=== PATIENT | female | born 1995 | race Caucasian/White ===

== ENCOUNTER 2017-09-01 19:51 | Emergency (ER) | payer BC ==
[2017-09-01] MEDS ORDERED: MOTRIN 400 MG PO ONE (21:01)
--- NOTE | 2017-09-01 21:03 | ERPHSYRPT ---
- History of Present Illness Time Seen by Provider: 09/01/17 20:53 Source: patient Exam Limitations: no limitations Patient Subjective Stated Complaint: pt states while climbing down a ladder, she missed a step and and twisted her ankle and heard 2 pops. Triage Nursing Assessment: pt alert and oriented, asnwers questions approp. pt transfer from wheelchair to stretcher per self, does not bear weigh on lt leg. respirations nonlabored with lungs cta. tenderness noted to lt ankle and foot. Physician History: Pt states, she slipped off a ladder, twisted her left ankle, developed pain, denies other injury or complaints Method of Injury: fell, twisted Occurred: just prior to arrival Quality: constant Severity of Pain-Max: moderate Severity of Pain-Current: moderate Lower Extremities Pain: foot: left, ankle: left Modifying Factors: Improves With: movement Associated Symptoms: none Allergies/Adverse Reactions: No Known Drug Allergies Allergy (Verified 09/01/17 20:41) Home Medications: No Reportable Medications [No Reported Medications] 09/01/17 [History] Hx Tetanus, Diphtheria Vaccination/Date Given: Yes Hx Influenza Vaccination/Date Given: No Hx Pneumococcal Vaccination/Date Given: No Immunizations Up to Date: Yes - Review of Systems Constitutional: No Symptoms Musculoskeletal: Other (left ankle and foot painful) All Other Systems: Reviewed and Negative - Past Medical History Cardiac History: Hypertension - Past Surgical History Past Surgical History: Yes Other Surgical History: surgery on lt arm- broken, dislocated elbow - Social History Smoking Status: Current every day smoker How long have you smoked: 2yrs Exposure to second hand smoke: No Drug Use: none Patient Lives Alone: No - Female History Hx Last Menstrual Period: 37 days-irreg Hx Now: No - Nursing Vital Signs Nursing Vital Signs: Initial Vital Signs Temperature 97.5 F 09/01/17 20:30 Pulse Rate 120 H 09/01/17 20:30 Respiratory Rate 18 09/01/17 20:30 Blood Pressure 144/96 09/01/17 20:30 O2 Sat by Pulse Oximetry 100 09/01/17 20:30 Pain Scale Pain Intensity 10 - Physical Exam General Appearance: no apparent distress Eyes, Ears, Nose, Throat Exam: normal ENT inspection Neck Exam: normal inspection, non-tender Cardiovascular/Respiratory Exam: chest non-tender, normal breath sounds, regular rate/rhythm, heart sounds normal Gastrointestinal/Abdominal Exam: non-tender, soft Back Exam: normal inspection, No CVA tenderness Hips Exam: bilateral: non-tender Ankle Exam: left ankle: soft tissue tenderness (lateral ankle, no severe laxity or hematoma, good distal pulses) Foot Exam: left foot: soft tissue tenderness (dorsal foot, no swelling or bruise ) Neuro/Tendon Exam: normal motor functions Mental Status Exam: alert, oriented x 3 Skin Exam: normal color, warm, dry SpO2 Interpretation: normal SpO2: 100 Oxygen Delivery: Room Air - Course Nursing assessment & vital signs reviewed: Yes - Radiology Exams Left Ankle X-ray Interpretation: Interpreted by me, Negative Left Foot X-ray Interpretation: Interpreted by me, Negative Ordered Tests: Active Orders 24 hr Category Date Time Status ANKLE (3 VIEWS) Stat Exams 09/01/17 20:57 Taken FOOT (MINIMUM 3 VIEWS) Stat Exams 09/01/17 20:57 Ordered Medication Summary Discontinued Medications Generic Name Dose Route Start Last Admin Trade Name Freq PRN Reason Stop Dose Admin Ibuprofen 400 mg 09/01/17 21:01 09/01/17 21:05 Motrin 400 Mg PO 09/01/17 21:02 400 mg STAT ONE Administration Ibuprofen Confirm 09/01/17 21:05 Motrin 400 Mg Administered 09/01/17 21:06 Dose 400 mg .ROUTE .[employer]MED ONE - Progress Progress: improved Progress Note: 09/01/17 22:44 I informed patient about her X ray results, instructed to rest x 2-3 days with elevated leg, apply ice to swelling, return if severe pain, or discoloration of the toes, otherwise to follow up with his doctor or [facility] next week. Counseled pt/family regarding: diagnosis, need for follow-up, rad results - Departure Time of Disposition: 22:45 Departure Disposition: Home Clinical Impression: Ankle sprain Qualifiers: Encounter type: initial encounter Involved ligament of ankle: other ligament Laterality: left Qualified Code(s): S93.492A - Sprain of other ligament of left ankle, initial encounter Condition: Stable Critical Care Time: No Referrals: DOCTOR,NO FAMILY [Primary Care Provider] - Instructions: Ankle Sprain (DC) Additional Instructions: Rest x2-3 days with elevated leg, apply ice or cold compresses to swelling, return if severe pain, swelling, discoloration of the toes! Follow up with tour doctor or [facility] next week!
[2017-09-01] MEDS ORDERED: MOTRIN 400 MG ONE (21:05)
[2017-09-01 21:11] VITALS: BP 118/90; PULSE 109
[2017-09-01 22:46] VITALS: O2SAT 100
--- NOTE | 2017-09-01 23:05 | XRAY ---
Indication: Pain following fall. Comparison: None 3 nonweightbearing views of the left foot demonstrates tiny heel spurs. No other bony, articular, or soft tissue abnormalities.
--- NOTE | 2017-09-01 23:05 | XRAY ---
Indication: Pain following fall. Comparison: None 3 views of the left ankle demonstrates tiny heel spurs. No other bony, articular, or soft tissue abnormalities.
== END 2017-09-01 23:04 | disposition home or self-care (01) ==
LOC: ED 19:51
DX: S93.402A Sprain of unspecified ligament of left ankle, initial encounter (principal); W11.XXXA Fall on and from ladder, initial encounter
CPT/HCPCS: 73610; 73630; 99283; A9270-GY

== ENCOUNTER 2021-02-14 10:20 | Emergency (ER) | payer BC ==
--- NOTE | 2021-02-14 10:28 | ERPHSYRPT ---
- History of Present Illness Time Seen by Provider: 02/14/21 10:27 Source: patient Exam Limitations: no limitations Physician History: This is a morbidly obese 25-year-old white female who presents with left ankle pain. Patient stepped off of her mother's porch 2 days ago and twisted her ankle. There is swelling and bruising present she is concerned that there may be a fracture present. She is able to bear weight. She ambulated into the emergency department with an old walking boot in place. Occurred: days ago (2) Quality: aching Severity of Pain-Max: mild (To moderate) Severity of Pain-Current: mild (To moderate) Lower Extremities Pain: ankle: left Modifying Factors: Improves With: movement Associated Symptoms: other (Is able to bear weight but there is aching present.) Allergies/Adverse Reactions: No Known Drug Allergies Allergy (Verified 02/14/21 10:36) Home Medications: Ethinyl Estradiol/Drospirenone [Selina 28 Tablet] 1 each PO DAILY 02/14/21 [History] Fluoxetine HCl 20 mg [Prozac 20 MG] 20 mg PO DAILY 02/14/21 [History] Hx Tetanus, Diphtheria Vaccination/Date Given: Yes Hx Influenza Vaccination/Date Given: No Hx Pneumococcal Vaccination/Date Given: No Travel Risk - International Travel Have you traveled outside of the country in past 3 weeks: No - Coronavirus Screening Are you exhibiting any of the following symptoms?: No Close contact with a COVID-19 positive Pt in past 14-21 Days: No - Review of Systems Constitutional: No Symptoms Eyes: No Symptoms Ears, Nose, & Throat: No Symptoms Respiratory: No Symptoms Cardiac: No Symptoms Abdominal/Gastrointestinal: No Symptoms Genitourinary Symptoms: No Symptoms Musculoskeletal: Injury (Left ankle) Skin: Other (Ecchymosis medial aspect left ankle) Neurological: No Symptoms Psychological: No Symptoms Endocrine: No Symptoms Hematologic/Lymphatic: No Symptoms Immunological/Allergic: No Symptoms All Other Systems: Reviewed and Negative - Past Medical History Cardiac History: Hypertension - Past Surgical History Past Surgical History: Yes Other Surgical History: surgery on lt arm- broken, dislocated elbow - Social History Smoking Status: Current every day smoker How long have you smoked: 2yrs Exposure to second hand smoke: No Drug Use: none Patient Lives Alone: No - Nursing Vital Signs Nursing Vital Signs: Initial Vital Signs Temperature 97.3 F 02/14/21 10:25 Pulse Rate 107 H 02/14/21 10:25 Blood Pressure 153/117 02/14/21 10:25 O2 Sat by Pulse Oximetry 97 02/14/21 10:25 Pain Scale Pain Intensity 8 - Physical Exam General Appearance: no apparent distress, alert, obese Eyes, Ears, Nose, Throat Exam: normal ENT inspection, moist mucous membranes Neck Exam: normal inspection, non-tender, supple, full range of motion Cardiovascular/Respiratory Exam: chest non-tender, no respiratory distress Gastrointestinal/Abdominal Exam: non-tender Back Exam: normal inspection, normal range of motion, CVA tenderness Hips Exam: bilateral: non-tender, normal inspection, normal range of motion, no evidence of injury Legs Exam: bilateral leg: non-tender, normal inspection, normal range of motion, no evidence of injury Knees Exam: bilateral knee: non-tender, normal inspection, normal range of motion, no evidence of injury Ankle Exam: right ankle: non-tender, normal inspection, normal range of motion, no evidence of injury, left ankle: ecchymosis, soft tissue tenderness, swelling Foot Exam: bilateral foot: non-tender, normal inspection, normal range of motion, no evidence of injury Neuro/Tendon Exam: normal sensation, normal motor functions, normal tendon functions, responds to pain, no evidence tendon injury Mental Status Exam: alert, oriented x 3, cooperative Skin Exam: normal color, warm, dry SpO2 Interpretation: normal O2 Delivery: Room Air - Course Nursing assessment & vital signs reviewed: Yes Ordered Tests: Active Orders 24 hr Category Date Time Status ANKLE (3 VIEWS) Stat Exams 02/14/21 10:42 Taken - Progress Progress: unchanged, pain not gone completely, re-examined Progress Note: 02/14/21 11:10 X-ray left ankle shows no acute fracture or dislocation. There is evidence of soft tissue swelling the medial aspect of her left ankle Counseled pt/family regarding: diagnosis, need for follow-up, rad results - Departure Departure Disposition: Home Clinical Impression: Left ankle sprain Condition: Stable Critical Care Time: No Additional Instructions: Minimize your weightbearing. Use the walking boot until you have no pain. Use ice pack to area 3 times a day for the next 48 hours. Elevate the left ankle above the level of your heart. Add Tylenol and ibuprofen for pain control. Follow-up with [facility] orthopedic clinic for persistent symptoms.
[2021-02-14 10:36] VITALS: BP 153/117; PULSE 107; O2SAT 97
--- NOTE | 2021-02-14 18:55 | XRAY ---
Indication: Pain and bruising following fall 2 days ago. Comparison: September 01, 2017. 3 view left ankle demonstrates new nondisplaced fracture medial malleolus tip. Stable tiny heel spurs. No other bony, articular, or soft tissue abnormalities. Comment: Fracture not reported by interpreting ER clinician. Telephone report given to Dr. Betts at 1850 hrs. on February 14, 2021.
== END 2021-02-14 11:18 | disposition home or self-care (01) ==
LOC: ED 10:20
DX: S93.402A Sprain of unspecified ligament of left ankle, initial encounter (principal); S82.55XA Nondisplaced fracture of medial malleolus of left tibia, initial encounter for closed fracture; X50.1XXA Overexertion from prolonged static or awkward postures, initial encounter; Y92.008 Other place in unspecified non-institutional (private) residence as the place of occurrence of the external cause; I10 Essential (primary) hypertension; E66.01 Morbid (severe) obesity due to excess calories; Z72.0 Tobacco use
CPT/HCPCS: 73610; 99283

== ENCOUNTER 2022-01-16 20:01 | Emergency (ER) | payer SELFPAY ==
[2022-01-16] MEDS ORDERED: Sodium Chloride 0.9% 1000 ML 1,000 ML IV STA (21:16)
[2022-01-16] MEDS ORDERED: Zofran 4 MG/2 ML VIAL IV ONE (21:16)
[2022-01-16] MEDS ORDERED: Zofran 4 MG/2 ML VIAL ONE (21:26)
[2022-01-16] MEDS ORDERED: Sodium Chloride 0.9% 1000 ML 1,000 ML ONE (21:26)
--- NOTE | 2022-01-16 21:56 | ERPHSYRPT ---
- History of Present Illness Time Seen by Provider: 01/16/22 21:25 Historian: patient Exam Limitations: no limitations Patient Subjective Stated Complaint: pt was nauseated at work today and states she became sob. went home and did a test that was negative, walked out of the bathroom became dizzy and fell and hit face on floor. no vomiting or diarrhea, states she has no pain at this time. Triage Nursing Assessment: pt alert and oriented, no pain at this time. no nausea or vomiting Physician History: Patient is a 26-year-old white female who became ill today at work with some nausea. She went home and did a home test which was negative she was also short of breath she later went to the bathroom for to urinate and when she stood up room started spinning and she fell face first on the floor. She denies any fever chills sweats no vomiting and no diarrhea only nausea. Presently she has no symptoms. Timing/Duration: today Activities at Onset: none Quality: cramping Abdominal Pain Onset Location: generalized abdomen Severity of Pain-Max: mild Severity of Pain-Current: none Modifying Factors: Improves With: nothing Associated Symptoms: nausea Previous symptoms: same symptoms as today Allergies/Adverse Reactions: No Known Drug Allergies Allergy (Verified 02/14/21 10:36) Home Medications: Ethinyl Estradiol/Drospirenone [Selina 28 Tablet] 1 each PO DAILY 02/14/21 [History] Fluoxetine HCl 20 mg [Prozac 20 MG] 20 mg PO DAILY 02/14/21 [History] Hx Tetanus, Diphtheria Vaccination/Date Given: Yes Hx Influenza Vaccination/Date Given: No Hx Pneumococcal Vaccination/Date Given: No Travel Risk - International Travel Have you traveled outside of the country in past 3 weeks: No - Coronavirus Screening Are you exhibiting any of the following symptoms?: Yes Symptoms: Shortness of Breath Close contact with a COVID-19 positive Pt in past 14-21 Days: No - Vaccine Status Have you recieved a Covid-19 vaccination: No Department Director: [employer] - Vaccination Dates Date of 2cond Vaccination (if applicable): 01/01/2021 - Review of Systems Constitutional: No Fever, No Chills Eyes: No Symptoms Ears, Nose, & Throat: No Symptoms Respiratory: No Cough, No Dyspnea Cardiac: No Chest Pain, No Edema, No Syncope Abdominal/Gastrointestinal: Abdominal Pain, Nausea, No Vomiting, No Diarrhea Genitourinary Symptoms: No Dysuria Musculoskeletal: No Back Pain, No Neck Pain Skin: No Rash Neurological: Dizziness, No Focal Weakness, No Sensory Changes Psychological: No Symptoms Endocrine: No Symptoms All Other Systems: Reviewed and Negative - Past Medical History Pertinent Past Medical History: Yes Cardiac History: Hypertension - Past Surgical History Past Surgical History: Yes Other Surgical History: surgery on lt arm- broken, dislocated elbow - Social History Smoking Status: Current every day smoker How long have you smoked: 2yrs Exposure to second hand smoke: No Drug Use: none Patient Lives Alone: No - Female History Hx Last Menstrual Period: march Hx Now: No (unknown) - Nursing Vital Signs Nursing Vital Signs: Initial Vital Signs Temperature 98.6 F 01/16/22 21:11 Pulse Rate 87 01/16/22 21:11 Respiratory Rate 18 01/16/22 21:11 Blood Pressure 160/116 01/16/22 21:11 Pain Scale Pain Intensity 0 - Physical Exam General Appearance: no apparent distress, alert Eye Exam: PERRL/EOMI, eyes nml inspection Ears, Nose, Throat Exam: normal ENT inspection, pharynx normal, moist mucous membranes Neck Exam: normal inspection, non-tender, supple, full range of motion Respiratory Exam: normal breath sounds, lungs clear, No respiratory distress Cardiovascular Exam: regular rate/rhythm, normal heart sounds Gastrointestinal/Abdomen Exam: soft, No tenderness, No mass Back Exam: normal inspection, normal range of motion, No CVA tenderness, No vertebral tenderness Extremity Exam: normal inspection, normal range of motion, pelvis stable Neurologic Exam: alert, oriented x 3, cooperative, normal mood/affect, nml cerebellar function, sensation nml, No motor deficits Skin Exam: normal color, warm, dry - Course Nursing assessment & vital signs reviewed: Yes EKG Interpreted by Me: RATE (94), Sinus Rhythm, NORMAL AXIS, NORMAL INTERVALS, NORMAL QRS, NORMAL ST-T - Radiology Exams Chest X-ray Interpretation: Interpreted by me, Other (Cardiomegaly or rotation) - CT Exams Abdomen/Pelvis CT Interpretation: Tele-radiologist Report Ordered Tests: Active Orders 24 hr Category Date Time Status EKG-ER Only STAT Care 01/16/22 21:16 Active IV Insertion STAT Care 01/16/22 21:16 Active ABDOMEN AND PELVIS W/0 CONTRAS [CT] Stat Exams 01/16/22 21:17 Taken CHEST 1 VIEW (PORTABLE) Stat Exams 01/16/22 21:17 Taken AMYLASE Stat Lab 01/16/22 22:07 Completed CBC W DIFF Stat Lab 01/16/22 22:07 Completed CMP Stat Lab 01/16/22 22:07 Completed HCG,QUALITATIVE URINE Stat Lab 01/16/22 21:16 Completed LIPASE Stat Lab 01/16/22 22:07 Completed Lactic Acid Stat Lab 01/16/22 21:36 Completed PROTIME WITH INR Stat Lab 01/16/22 22:07 Completed TROPONIN Q4H Lab 01/16/22 22:07 Completed TROPONIN Q4H Lab 01/17/22 01:30 Ordered TROPONIN Q4H Lab 01/17/22 05:30 Ordered UA W/RFX CULTURE Stat Lab 01/16/22 23:30 Completed Urine Triage Profile Stat Lab 01/16/22 21:16 Ordered Medication Summary Discontinued Medications Generic Name Dose Route Start Last Admin Trade Name Freq PRN Reason Stop Dose Admin Sodium Chloride 1,000 mls @ 999 mls/hr 01/16/22 21:16 01/16/22 21:35 Sodium Chloride 0.9% 1000 Ml IV 01/16/22 22:16 999 mls/hr .Q1H1M STA Administration Sodium Chloride Confirm 01/16/22 21:26 Sodium Chloride 0.9% 1000 Ml Administered 01/16/22 21:27 Dose 1,000 mls @ ud .ROUTE .STK-MED ONE Ondansetron HCl 4 mg 01/16/22 21:16 01/16/22 21:36 Ondansetron Hcl 4 Mg/2 Ml Vial IV 01/16/22 21:17 4 mg STAT ONE Administration Ondansetron HCl Confirm 01/16/22 21:26 Ondansetron Hcl 4 Mg/2 Ml Vial Administered 01/16/22 21:27 Dose 4 mg .ROUTE .STK-MED ONE Lab/Rad Data: Laboratory Result Diagrams 01/16/22 22:07 01/16/22 22:07 Laboratory Results 01/16/22 01/16/22 01/16/22 Range/Units 23:30 22:07 22:07 WBC (4.0-10.5) x10^3/uL RBC (4.1-5.4) x10^6/uL Hgb (12.0-16.0) g/dL Hct (35-47) % MCV (78-100) fL MCH (26-32) pg MCHC (32-36) g/dL RDW (11.5-14.0) % Plt Count (150-450) x10^3/uL MPV (7.5-11.0) fL Gran % (36.0-66.0) % Immature Gran % (Auto) (0.00-0.4) % Nucleat RBC Rel Count (0.00-0.1) % Eos # (Auto) (0-0.5) x10^3/uL Immature Gran # (Auto) (0.00-0.03) x10^3u/L Absolute Lymphs (auto) (1.0-4.6) x10^3/uL Absolute Monos (auto) (0.0-1.3) x10^3/uL Absolute Nucleated RBC (0.00-0.01) x10^3u/L Lymphocytes % (24.0-44.0) % Monocytes % (0.0-12.0) % Eosinophils % (0.00-5.0) % Basophils % (0.0-0.4) % Absolute Granulocytes (1.4-6.9) x10^3/uL Basophils # (0-0.4) x10^3/uL PT (9.4-12.5) SECONDS INR (0.8-3.0) Sodium (137-145) mmol/L Potassium (3.5-5.1) mmol/L Chloride (98-107) mmol/L Carbon Dioxide (22-30) mmol/L Anion Gap (5-15) MEQ/L BUN (7-17) mg/dL Creatinine (0.52-1.04) mg/dL Estimated GFR ML/MIN Glucose (74-106) mg/dL Lactic Acid (0.4-2.0) Calcium (8.4-10.2) mg/dL Total Bilirubin (0.2-1.3) mg/dL AST (14-36) U/L ALT (0-35) U/L Alkaline Phosphatase (38-126) U/L Troponin I < 0.012 (0.000-0.034) ng/mL Serum Total Protein (6.3-8.2) g/dL Albumin (3.5-5.0) g/dL Amylase (30-110) U/L Lipase (23-300) U/L Urinalys Dipstick Clnc MAIN LAB Urine Color YELLOW (YELLOW) Urine Appearance CLEAR (CLEAR) Urine pH 5.5 (5-6) Ur Specific [place] >=1.030 A (1.005-1.025) POC Urine Protein Conf NEGATIVE (Negative) Urine Ketones NEGATIVE (NEGATIVE) Urine Nitrite NEGATIVE (NEGATIVE) Urine Bilirubin NEGATIVE (NEGATIVE) Urine Urobilinogen 0.2 (0-1) mg/dL Urine Leukocytes TRACE A (NEGATIVE) Urine WBC (Auto) 6-10 A (0-5) /HPF Urine RBC (Auto) 0-2 (0-2) /HPF U Epithel Cells (Auto) RARE (FEW) /HPF Urine Bacteria (Auto) NONE (NEGATIVE) /HPF Urine RBC NEGATIVE (0-5) Federico/ul Urine Mucus (Auto) SLIGHT A (NEGATIVE) /HPF Ur Culture Indicated? NO Urine Glucose NEGATIVE (NEGATIVE) mg/dL Urine HCG, Qual (Negative) Influenza Type A Ag NEGATIVE (NEGATIVE) Influenza Type B Ag NEGATIVE (NEGATIVE) RSV (PCR) NEGATIVE (Negative) SARS-CoV-2 (PCR) NEGATIVE (NEGATIVE) 01/16/22 01/16/22 01/16/22 Range/Units 22:07 22:07 22:07 WBC 12.6 H (4.0-10.5) x10^3/uL RBC 4.91 (4.1-5.4) x10^6/uL Hgb 13.1 (12.0-16.0) g/dL Hct 42.4 (35-47) % MCV 86.4 (78-100) fL MCH 26.7 (26-32) pg MCHC 30.9 L (32-36) g/dL RDW 14.9 H (11.5-14.0) % Plt Count 289 (150-450) x10^3/uL MPV 11.7 H (7.5-11.0) fL Gran % 66.5 H (36.0-66.0) % Immature Gran % (Auto) 0.5 H (0.00-0.4) % Nucleat RBC Rel Count 0.0 (0.00-0.1) % Eos # (Auto) 0.42 (0-0.5) x10^3/uL Immature Gran # (Auto) 0.06 H (0.00-0.03) x10^3u/L Absolute Lymphs (auto) 3.10 (1.0-4.6) x10^3/uL Absolute Monos (auto) 0.59 (0.0-1.3) x10^3/uL Absolute Nucleated RBC 0.00 (0.00-0.01) x10^3u/L Lymphocytes % 24.7 (24.0-44.0) % Monocytes % 4.7 (0.0-12.0) % Eosinophils % 3.3 (0.00-5.0) % Basophils % 0.3 (0.0-0.4) % Absolute Granulocytes 8.34 H (1.4-6.9) x10^3/uL Basophils # 0.04 (0-0.4) x10^3/uL PT 10.3 (9.4-12.5) SECONDS INR 0.97 (0.8-3.0) Sodium 136 L (137-145) mmol/L Potassium 4.9 (3.5-5.1) mmol/L Chloride 103 (98-107) mmol/L Carbon Dioxide 27 (22-30) mmol/L Anion Gap 10.8 (5-15) MEQ/L BUN 8 (7-17) mg/dL Creatinine 0.50 L (0.52-1.04) mg/dL Estimated GFR > 60.0 ML/MIN Glucose 83 (74-106) mg/dL Lactic Acid (0.4-2.0) Calcium 9.2 (8.4-10.2) mg/dL Total Bilirubin 0.70 (0.2-1.3) mg/dL AST 30 (14-36) U/L ALT 26 (0-35) U/L Alkaline Phosphatase 58 (38-126) U/L Troponin I (0.000-0.034) ng/mL Serum Total Protein 7.5 (6.3-8.2) g/dL Albumin 4.4 (3.5-5.0) g/dL Amylase 49 (30-110) U/L Lipase 31 (23-300) U/L Urinalys Dipstick Clnc Urine Color (YELLOW) Urine Appearance (CLEAR) Urine pH (5-6) Ur Specific [place] (1.005-1.025) POC Urine Protein Conf (Negative) Urine Ketones (NEGATIVE) Urine Nitrite (NEGATIVE) Urine Bilirubin (NEGATIVE) Urine Urobilinogen (0-1) mg/dL Urine Leukocytes (NEGATIVE) Urine WBC (Auto) (0-5) /HPF Urine RBC (Auto) (0-2) /HPF U Epithel Cells (Auto) (FEW) /HPF Urine Bacteria (Auto) (NEGATIVE) /HPF Urine RBC (0-5) Federico/ul Urine Mucus (Auto) (NEGATIVE) /HPF Ur Culture Indicated? Urine Glucose (NEGATIVE) mg/dL Urine HCG, Qual (Negative) Influenza Type A Ag (NEGATIVE) Influenza Type B Ag (NEGATIVE) RSV (PCR) (Negative) SARS-CoV-2 (PCR) (NEGATIVE) 01/16/22 01/16/22 Range/Units 21:36 21:16 WBC (4.0-10.5) x10^3/uL RBC (4.1-5.4) x10^6/uL Hgb (12.0-16.0) g/dL Hct (35-47) % MCV (78-100) fL MCH (26-32) pg MCHC (32-36) g/dL RDW (11.5-14.0) % Plt Count (150-450) x10^3/uL MPV (7.5-11.0) fL Gran % (36.0-66.0) % Immature Gran % (Auto) (0.00-0.4) % Nucleat RBC Rel Count (0.00-0.1) % Eos # (Auto) (0-0.5) x10^3/uL Immature Gran # (Auto) (0.00-0.03) x10^3u/L Absolute Lymphs (auto) (1.0-4.6) x10^3/uL Absolute Monos (auto) (0.0-1.3) x10^3/uL Absolute Nucleated RBC (0.00-0.01) x10^3u/L Lymphocytes % (24.0-44.0) % Monocytes % (0.0-12.0) % Eosinophils % (0.00-5.0) % Basophils % (0.0-0.4) % Absolute Granulocytes (1.4-6.9) x10^3/uL Basophils # (0-0.4) x10^3/uL PT (9.4-12.5) SECONDS INR (0.8-3.0) Sodium (137-145) mmol/L Potassium (3.5-5.1) mmol/L Chloride (98-107) mmol/L Carbon Dioxide (22-30) mmol/L Anion Gap (5-15) MEQ/L BUN (7-17) mg/dL Creatinine (0.52-1.04) mg/dL Estimated GFR ML/MIN Glucose (74-106) mg/dL Lactic Acid 1.3 (0.4-2.0) Calcium (8.4-10.2) mg/dL Total Bilirubin (0.2-1.3) mg/dL AST (14-36) U/L ALT (0-35) U/L Alkaline Phosphatase (38-126) U/L Troponin I (0.000-0.034) ng/mL Serum Total Protein (6.3-8.2) g/dL Albumin (3.5-5.0) g/dL Amylase (30-110) U/L Lipase (23-300) U/L Urinalys Dipstick Clnc Urine Color (YELLOW) Urine Appearance (CLEAR) Urine pH (5-6) Ur Specific [place] (1.005-1.025) POC Urine Protein Conf (Negative) Urine Ketones (NEGATIVE) Urine Nitrite (NEGATIVE) Urine Bilirubin (NEGATIVE) Urine Urobilinogen (0-1) mg/dL Urine Leukocytes (NEGATIVE) Urine WBC (Auto) (0-5) /HPF Urine RBC (Auto) (0-2) /HPF U Epithel Cells (Auto) (FEW) /HPF Urine Bacteria (Auto) (NEGATIVE) /HPF Urine RBC (0-5) Federico/ul Urine Mucus (Auto) (NEGATIVE) /HPF Ur Culture Indicated? Urine Glucose (NEGATIVE) mg/dL Urine HCG, Qual NEGATIVE (Negative) Influenza Type A Ag (NEGATIVE) Influenza Type B Ag (NEGATIVE) RSV (PCR) (Negative) SARS-CoV-2 (PCR) (NEGATIVE) - Progress Progress: improved - Departure Departure Disposition: Home Clinical Impression: Urinary tract infection Condition: Stable Critical Care Time: No Referrals: DOCTOR,NO FAMILY [Primary Care Provider] - Follow up/PCP as directed Instructions: Urinary Tract Infection, Adult (DC) Prescriptions: Cephalexin Mh 500 mg [Keflex 500 mg] 500 mg PO TID #21 cap
[2022-01-16 22:10] LABS: Absolute Neutrophil Ct (ANC) 8.34 x10^3/uL (1.4-6.9); Basophil (Absolute #) 0.04 x10^3/uL (0-0.4); Eosinophil % 3.3 % (0.00-5.0); Eosinophil (Absolute #) 0.42 x10^3/uL (0-0.5); Hematocrit 42.4 % (35-47); Hemoglobin 13.1 g/dL (12.0-16.0); Lymphocytes % 24.7 % (24.0-44.0); Mean Cell Volume 86.4 fL (78-100); Mean Corpuscular Hemoglobin 26.7 pg (26-32); Mean Corpuscular Hgb Concent. 30.9 g/dL (32-36); Mean Platelet Volume 11.7 fL (7.5-11.0); Monocyte (Absolute #) 0.59 x10^3/uL (0.0-1.3); Monocytes % 4.7 % (0.0-12.0); Neutrophil % 66.5 % (36.0-66.0); Platelet Count 289 x10^3/uL (150-450); Red Blood Count 4.91 x10^6/uL (4.1-5.4); Red Cell Distribution Width 14.9 % (11.5-14.0); White Blood Count 12.6 x10^3/uL (4.0-10.5)
[2022-01-16 22:24] LABS: ALBUMIN 4.4 g/dL (3.5-5.0); ALKALINE PHOSPHATASE 58 U/L (38-126); AMYLASE 49 U/L (30-110); ANION GAP 10.8 MEQ/L (5-15); BLOOD UREA NITROGEN 8 mg/dL (7-17); CHLORIDE 103 mmol/L (98-107); Calcium 9.2 mg/dL (8.4-10.2); Carbon Dioxide 27 mmol/L (22-30); EST GLOMERULAR FILTRATION RATE > 60.0 ML/MIN; Glucose 83 mg/dL (74-106); INR 0.97 (0.8-3.0); LIPASE 31 U/L (23-300); PROTIME 10.3 SECONDS (9.4-12.5); Potassium 4.9 mmol/L (3.5-5.1); SGOT/AST 30 U/L (14-36); SGPT/ALT 26 U/L (0-35); SODIUM 136 mmol/L (137-145); Total Protein 7.5 g/dL (6.3-8.2)
[2022-01-16 22:48] LABS: INFLUENZA A NEGATIVE (NEGATIVE); INFLUENZA B NEGATIVE (NEGATIVE); RESPIRATORY SYNCTIAL VIRUS NEGATIVE (Negative); SARS-CoV-2 Xpert Express NEGATIVE (NEGATIVE)
[2022-01-16 23:11] VITALS: BP 123/96
[2022-01-16 23:30] LABS: Appearance CLEAR (CLEAR); Bilirubin NEGATIVE (NEGATIVE); Dipstick done @ ? MAIN LAB; Glucose NEGATIVE (NEGATIVE); Ketones NEGATIVE (NEGATIVE); Nitrite NEGATIVE (NEGATIVE); Ph 5.5 (5-6); Protein,Urine Dip NEGATIVE (Negative); RBC NEGATIVE Ery/ul (0-5); Specific Gravity >=1.030 (1.005-1.025); Urobilinogen 0.2 mg/dL (0-1)
[2022-01-16 23:32] LABS: Epithelial Cells RARE /HPF (FEW); Mucus SLIGHT /HPF (NEGATIVE); RBC 0-2 /HPF (0-2); Urine Cultured Indicated? NO
[2022-01-16 23:44] LABS: Amphetamine,Urine NEGATIVE (NEGATIVE); Barbiturate,Urine NEGATIVE (NEGATIVE); Benzodiazepine,Urine NEGATIVE (NEGATIVE); Cocaine,Urine NEGATIVE (NEGATIVE); Methadone,Urine NEGATIVE (NEGATIVE); Opiate,Urine NEGATIVE (NEGATIVE); PCP,Urine NEGATIVE (NEGATIVE); THC,Urine NEGATIVE (NEGATIVE)
[2022-01-16] MEDS ORDERED: KEFLEX 500 MG PO ONE (23:47)
[2022-01-16] MEDS ORDERED: KEFLEX 500 MG ONE (23:52)
[2022-01-17 00:02] VITALS: PULSE 87; O2SAT 95
--- NOTE | 2022-01-17 08:46 | XRAY ---
Indication: Abdomen pain, nausea, and vomiting. Multiple contiguous images obtained through the abdomen and pelvis without contrast. Comparison: None Lung bases demonstrates right lower lobe calcified granuloma. No infiltrate or effusion. Heart not enlarged. Small distal paraesophageal calcified nodes. Noncontrasted stomach and bowel loops appear nonobstructed with normal appendix. 20.8 cm fatty hepatomegaly, 13.9 cm splenomegaly, and splenic calcified granulomas. No free fluid/air. Remaining liver, gallbladder, pancreas, spleen, adrenal glands, kidneys, ureters, bladder, uterus, and aorta are unremarkable for noncontrast exam. Osseous structures intact. No ventral or inguinal hernias. Impression: 1. Fatty hepatomegaly, splenomegaly, and old granulomatous disease. 2. Remaining CT abdomen/pelvis without contrast exam is negative. Comment: Preliminary interpretation made by [facility]. No critical discrepancy.
--- NOTE | 2022-01-17 08:50 | XRAY ---
Indication: Pain and nausea. Comparison: None Portable apical lordotic chest demonstrates normal heart, lungs, and bony thorax with incidental right perihilar calcified nodes.
== END 2022-01-17 00:02 | disposition home or self-care (01) ==
LOC: ED 20:01
DX: N39.0 Urinary tract infection, site not specified (principal); R42 Dizziness and giddiness; R11.0 Nausea; R06.02 Shortness of breath; I10 Essential (primary) hypertension; Z72.0 Tobacco use; Z79.899 Other long term (current) drug therapy
CPT/HCPCS: 0241U; 36000; 36415; 71045; 74176; 80053; 80307; 81015; 81025; 82150; 83605; 83690; 84484; 85025; 85610; 93005; 96374; 99284; J2405; A9270-GY